=== PATIENT | female | born 1955 | race Caucasian/White ===

== ENCOUNTER 2019-05-15 08:57 | Day surgery (SDC) | payer MEDICAID ==
[~2019-05-15] VITALS: Ht 157.5 cm; Wt 72.6 kg
[2019-05-15] MEDS ORDERED: MOBIC7.5 MG (09:51)
[2019-05-15] MEDS ORDERED: HYDROCODON-ACE1 EA10 PO (09:52)
[2019-05-15] MEDS ORDERED: VALIUM10 MG PO (09:52)
[2019-05-15] MEDS ORDERED: LISINOPRIL30 MG PO (09:53)
[2019-05-15] MEDS ORDERED: HCTZ25 MG PO (09:54)
[2019-05-15 09:55] LABS: HEMATOCRIT 34.3 % (36.0-48.0); HEMOGLOBIN 11.6 g/dL (12-16); MCH 32.3 pg (26.0-34.0); MCHC 33.8 g/dL (31.0-37.0); MCV 95.5 fL (80.0-100.0); MEAN PLATELET VOLUME 8.7 fL (7.4-10.4); RBC 3.59 10x6/uL (4.00-5.40); RDW 13.1 % (11.5-14.5); WBC 3.7 10x3/uL (4.8-10.8)
[2019-05-15 10:13] VITALS: BP 118/63; Ht 157.5 cm; Wt 72.6 kg
--- NOTE | 2019-05-18 16:07 | OP ---
PATIENT NAME: KARLI METZ MEDICAL RECORD: [id number] :53 LOCATION:D.OPS ADMISSION DATE: SURGEON: SUKHDEV MORE MD DATE OF OPERATION: 05/15/2019 PREOPERATIVE DIAGNOSES: Transverse colon polyp at 75 cm, which was a flat polyp about 45% of the circumference of the colon, which was tattooed with Hermila ink, proximal and distal to the polyp. POSTOPERATIVE DIAGNOSES: Transverse colon polyp at 75 cm, which was a flat polyp about 45% of the circumference of the colon, which was tattooed with Hermila ink, proximal and distal to the polyp. PROCEDURES: 1. Total colonoscopy to cecum. 2. Hot biopsy forceps polypectomies times 1 with treatment utilizing the argon plasma entry level assistant manager. SURGEON: Sukhdev More MD BAKERY DECORATOR: None. BLOOD LOSS: Minimal. ANESTHESIA: IV sedation. COMPLICATIONS: None. The risks, possible complications and alternatives to the procedure were discussed with the patient. She elects to proceed. The discussion specifically included, but was not limited to, bleeding requiring emergency reoperation, endoscopic perforation. ENDOSCOPIC COURSE: The patient was conveyed to endoscopy suite electively on 05/15/2019. IV sedation was induced by the anesthesia staff. The patient was placed in Chand position. A digital rectal examination was performed. A colonoscope was inserted through the anus. It was easily advanced to the cecum. The prep was adequate. I slowly withdrew the endoscope. I irrigated and aspirated extensively. I dragged the folds. I utilized a combination of direct imaging as well as narrow band imaging. The pullback was greater than an 18-minute pullback. The tattooed area was noted. It was on a fold as well as behind a fold. The area was biopsied utilizing the hot biopsy forceps polypectomy technique. Some residual polypoid tissue was then ablated utilizing the argon plasma entry level assistant manager with the right colon setting in the forced mode. I withdrew into the rectum. A retroflexed view was obtained in the rectum. I then unretroflexed the scope and removed it under direct vision. I will see the patient in my office in 2-3 weeks. I will plan for her next colonoscopy to take place in 1-2 years. TRANSINT:[id number] Voice Confirmation ID: [id number] DOCUMENT ID: [id number] OPERATIVE REPORT [id number] ISAÍAS,KARLISUKHDEV TAYLOR MD at 1607 CC: TOLU MAIER and BRAEDEN RODRIGUEZ DO [id number] DICTATION DATE: 05/15/19 1552 BANDER HAND: 05/15/19 1610 [facility] 05/15/19 [facility] [address] [id number]
== END 2019-05-15 15:44 | disposition home or self-care (01) ==
LOC: D.OPS 08:57
PROVIDERS: Anesthesiology; ATTEND Surgery
DX: K63.5 Polyp of colon (principal); Z01.812 Encounter for preprocedural laboratory examination

== ENCOUNTER 2020-05-06 16:08 | Inpatient (IN) | payer MEDICARE ==
[~2020-05-06] VITALS: Ht 160 cm; Wt 75.5 kg
[~2020-05-06 16:08] MED LIST: HCTZ25 MG PO; HYDROCODON-ACE1 EA10 PO; LISINOPRIL30 MG PO; MOBIC7.5 MG; VALIUM10 MG PO
[2020-05-06 17:41] LABS: BILIRUBIN NEGATIVE (NEGATIVE); GLUCOSE NEGATIVE (NEGATIVE); KETONE MODERATE mg/dL (NEGATIVE); NITRITE NEGATIVE (NEGATIVE); UROBILINOGEN NORMAL (NORMAL)
[2020-05-06 17:42] LABS: BACTERIA MANY /hpf (NEGATIVE); EPITHELIAL CELLS OCC /hpf (0-5); RED CELLS - URINE 0-5 /hpf (0-5)
[2020-05-06 18:00] LABS: BASOPHILS 0.1 % (0-2); EOSINOPHILS 0 % (0-7); HEMATOCRIT 38.9 % (36.0-48.0); IMMATURE GRANULOCYTES 0.3 % (0-5); LYMPHOCYTES 6.8 % (15-50); MCH 32.3 pg (26.0-34.0); MCHC 33.4 g/dL (31.0-37.0); MCV 96.5 fL (80.0-100.0); MONOCYTES 1.3 % (2-11); NEUTROPHILS 91.5 % (40-80); PLATELET COUNT 234 10x3/uL (130-400); RBC 4.03 10x6/uL (4.00-5.40); RDW 12.9 % (11.5-14.5); WBC 10.5 10x3/uL (4.8-10.8)
[2020-05-06 18:10] LABS: CALC OSMOLALITY 281 mosm/kg (275-300); CALCIUM 9.5 mg/dL (8.5-10.1); CARBON DIOXIDE 25.1 mmol/L (21.0-32.0); CHLORIDE - SERUM 100 mmol/L (98-107); CREATININE - SERUM 1.3 mg/dL (0.6-1.3); GLUCOSE 133 mg/dL (74-106); POTASSIUM - SERUM 4.2 mmol/L (3.5-5.1); SODIUM 136 mmol/L (136-145); UREA NITROGEN 35 mg/dL (7-18); eGFR NON AFRICAN AMERICAN 43 mL/min (90-120)
[2020-05-06 18:12] VITALS: BP 199/97
[2020-05-06 18:19] LABS: ALBUMIN 4.2 g/dL (3.4-5.0); ALKALINE PHOSPHATASE 83 U/L (30-120); ALT (SGPT) 22 U/L (10-68); AMYLASE - SERUM 65 U/L (25-115); BILIRUBIN - TOTAL 0.43 mg/dL (0.2-1.3); LIPASE 117 U/L (73-393); PROTEIN - SERUM 7.5 g/dL (6.4-8.2)
[2020-05-06 18:23] LABS: TROPONIN-I < 0.017 ng/mL (0.000-0.060)
--- NOTE | 2020-05-06 19:30 | NUR ---
REPORT TO HANG HUTCHINS
--- NOTE | 2020-05-06 20:36 | NUR ---
PT TO MRI VIA WHEELCHAIR AT THIS TIME.
--- NOTE | 2020-05-06 21:11 | NUR ---
PT BACK FROM ORDERED MRI AT THIS TIME
--- NOTE | 2020-05-06 22:25 | NUR ---
MEFOXIN IV INFUSION FINISHED AT THIS TIME.
--- NOTE | 2020-05-06 23:00 | NUR ---
RECEIVED TO ROOM, ACCOMPANIED BY STAFF. A&O X 4, AMBULATES INDEPENDENTLY. REPORTS ABDOMINAL PAIN 8/10 AND NAUSEA. NS INFUSING AT 125 TO LEFT FOREARM. NO FURTHER NEEDS VOICED AT THIS TIME.
[2020-05-07] VITALS: BP 177/79
[2020-05-07 01:19] VITALS: BMI 29.4
[2020-05-07 04:00] VITALS: BP 172/82
[2020-05-07 05:33] LABS: BASOPHILS 0.1 % (0-2); EOSINOPHILS 0 % (0-7); HEMATOCRIT 33.6 % (36.0-48.0); IMMATURE GRANULOCYTES 0.3 % (0-5); MCH 31.8 pg (26.0-34.0); MCHC 32.7 g/dL (31.0-37.0); MCV 97.1 fL (80.0-100.0); MEAN PLATELET VOLUME 8.6 fL (7.4-10.4); MONOCYTES 5.6 % (2-11); PLATELET COUNT 278 10x3/uL (130-400); RBC 3.46 10x6/uL (4.00-5.40); WBC 11.9 10x3/uL (4.8-10.8)
[2020-05-07 05:46] LABS: ALBUMIN 3.3 g/dL (3.4-5.0); ANION GAP 14.4 mmol/L (8-16); BILIRUBIN - TOTAL 0.4 mg/dL (0.2-1.3); CALCIUM 8.9 mg/dL (8.5-10.1); CARBON DIOXIDE 24.5 mmol/L (21.0-32.0); POTASSIUM - SERUM 3.9 mmol/L (3.5-5.1); PROTEIN - SERUM 6.8 g/dL (6.4-8.2)
[2020-05-07 05:53] LABS: CREATININE - SERUM 1.8 mg/dL (0.6-1.3)
[2020-05-07 09:11] VITALS: BP 175/74
[2020-05-07 09:12] VITALS: Ht 160 cm; Wt 75.5 kg
[2020-05-07 12:51] VITALS: BP 139/50
--- NOTE | 2020-05-07 14:00 | NUR ---
PATIENT IN BED WITH IV ITNACT. VS STABLE. NO COMPLAINTS. BANDAIDS TO ABDOMEN CDI. STATED FEELING A LOT BETTER AT THIS TIME. CALL LIGHT WITHIN REACH.
[2020-05-07 15:12] LABS: BASOPHILS 0 % (0-2); EOSINOPHILS 0 % (0-7); HEMATOCRIT 31.6 % (36.0-48.0); HEMOGLOBIN 10.4 g/dL (12-16); IMMATURE GRANULOCYTES 0.3 % (0-5); LYMPHOCYTES 6.6 % (15-50); MCH 32.6 pg (26.0-34.0); MCHC 32.9 g/dL (31.0-37.0); MEAN PLATELET VOLUME 8.5 fL (7.4-10.4); MONOCYTES 3.2 % (2-11); NEUTROPHILS 89.9 % (40-80); RBC 3.19 10x6/uL (4.00-5.40)
[2020-05-07 15:15] LABS: MCV 99.1 fL (80.0-100.0); PLATELET COUNT 211 10x3/uL (130-400)
[2020-05-07 15:25] LABS: ANION GAP 16.7 mmol/L (8-16); CALCIUM 8.2 mg/dL (8.5-10.1); CARBON DIOXIDE 23.4 mmol/L (21.0-32.0); CREATININE - SERUM 1.5 mg/dL (0.6-1.3); POTASSIUM - SERUM 4.1 mmol/L (3.5-5.1)
--- NOTE | 2020-05-07 19:28 | NUR ---
PATIENT AMBULATING IN CYR AT THIS TIME WITH NO PROBLEMS.
--- NOTE | 2020-05-07 19:30 | NUR ---
SUPINE IN ROOM, A&O X 4. DENIES PAIN/N/V. AMBULATING INDEPENDENTLY, NO IV. DAY NURSE PAGED ERNESTO OJEDA. CTM
[2020-05-07 20:00] VITALS: BP 135/52
--- NOTE | 2020-05-07 20:00 | NUR ---
RUSTY DEWITT PAGED. AWAITING CALL BACK.
--- NOTE | 2020-05-07 20:30 | NUR ---
ATTEMPTED TO SITE IV TO LEFT FOREARM, 2 ATTEMPTS. NO RESULTS. CTM.
[2020-05-08] VITALS: BP 136/59
--- NOTE | 2020-05-08 00:33 | NUR ---
I have reviewed this patient and I concur with the Shift Assessment completed by the Licensed Practical Nurse today this shift.
[2020-05-08 04:00] VITALS: BP 144/74
[2020-05-08 06:17] LABS: ANION GAP 10.1 mmol/L (8-16); CALCIUM 8.3 mg/dL (8.5-10.1); CARBON DIOXIDE 25.6 mmol/L (21.0-32.0); MAGNESIUM - SERUM 1.6 mg/dL (1.8-2.4); PHOSPHOROUS 3.9 mg/dL (2.5-4.9); POTASSIUM - SERUM 3.7 mmol/L (3.5-5.1)
[2020-05-08 06:18] LABS: CREATININE - SERUM 1.1 mg/dL (0.6-1.3)
[2020-05-08 06:19] LABS: BASOPHILS 0 % (0-2); EOSINOPHILS 0 % (0-7); HEMATOCRIT 28.6 % (36.0-48.0); HEMOGLOBIN 9.4 g/dL (12-16); IMMATURE GRANULOCYTES 0.2 % (0-5); LYMPHOCYTES 19.7 % (15-50); MCH 32.1 pg (26.0-34.0); MCHC 32.9 g/dL (31.0-37.0); MCV 97.6 fL (80.0-100.0); MEAN PLATELET VOLUME 8.4 fL (7.4-10.4); MONOCYTES 6.5 % (2-11); NEUTROPHILS 73.6 % (40-80); PLATELET COUNT 204 10x3/uL (130-400); RBC 2.93 10x6/uL (4.00-5.40); RDW 12.8 % (11.5-14.5)
[2020-05-08 06:39] LABS: WBC 8.2 10x3/uL (4.8-10.8)
--- NOTE | 2020-05-08 08:31 | NUR ---
PATIENT SITTING UP IN BED EATING BREAKFAST. CL IN REACH. SHIFT ASSESSMENT COMPLETED. 3 LAP SITES NOTED. BANDAIDS CDI. NO NEEDS AT THIS TIME. CL IN REACH. HOPING FOR DISCHARGE TODAY. WCTM
[2020-05-08 09:00] VITALS: BP 140/73
[2020-05-08] MEDS ORDERED: BACTRIM DS TAB1 EAC1 PO (11:04)
--- NOTE | 2020-05-08 12:45 | MORECARE ---
CASE MANAGEMENT DISCHARGE SUMMARY PATIENT: KARLI METZ UNIT: [id number] ADM DATE: 05/06/20 AGE: 64 : 54 SEX: F ROOM/BED: D.2210 AUTHOR: MAHAMED FIGUEREDO PHYSICIAN: REFERRING PHYSICIAN: JEET KENT MD DATE OF SERVICE: 05/08/20 Discharge Plan Patient Name: KARLI METZ Facility: [facility]:[place] : 1955 Planned Disposition: Home or Self Care Anticipated Discharge Date: Discharge Date: Expected LOS: Initial Reviewer: [email or web address] Initial Review Date: 05/06/2020 Generated: 05/08/20 1:44 pm Comments DCP- Discharge Planning Updated by [email or web address]: Carmen Andre on 05/08/20 11:[address] Patient Name: KARLI METZ Admission Status: ER Accout number: [id number] Admission Date: 05-06-2020 : 1955 Admission Diagnosis:UNSPECIFIED ABDOMINAL PAIN Attending: EDY Current LOS: 2 Anticipated DC Date: Planned Disposition: Home or Self Care Primary Insurance: MEDICARE A & B Discharge Planning Comments: CM met with patient to complete initial dc planning assessment. CM educated patient on the CM role and verbal consent given by patient to complete assessment. Patient lives at home with her daughter where she is independent with her care. At discharge patient plans to return home and feels this is a safe discharge. CM discussed availability of home health, rehab services, and medical equipment. Her daughter will be her straddle bug driver home today. Patient denied known discharge needs at this time. CM will continue to follow and will assist as needed with dc plans/needs. Yard Supervisor: Carmen Andre DCPIA - Discharge Planning Initial Assessment Updated by [email or web address]: Carmen Andre on 05/08/20 12:40 pm * Is the patient Alert and Oriented? Yes * How many steps to enter\exit or inside your home? 1 FLIGHT * PCP LIVIER * [facility] * Preadmission Environment Home with Family * ADLs Independent * Equipment None * List name and contact numbers for known caregivers / representatives who currently or will assist patient after discharge: LIDIA LORENZ [phone] * Verbal permission to speak to the caregivers and representatives has been obtained from the patient. N/A * Community resources currently utilized None * Additional services required to return to the preadmission environment? No * Can the patient safely return to the preadmission environment? Yes * Has this patient been hospitalized within the prior 30 days at any hospital? No Patient Name: KARLI METZ Page [id number] at 1245 All edits/amendments must be made on the electronic document DICTATION DATE: 05/08/20 1244 FINISHING SUPERVISOR: TOMMIE 05/08/20 1244 RPT#: [id number] DC DATE: STATUS: ADM IN [facility] [address] [place] [address] END OF REPORT
--- NOTE | 2020-05-08 13:42 | NUR ---
DISCHARGE INSTRUCTIONS GIVEN. PATIENT VERBALIZED UNDERSTANDING OF APPT AND MEDICATIONS. NOTIFIED HER RIDE. WILL NOTIFY ME UPON RIDE'S ARRIVAL SO I CAN SHOW HER THE WAY DOWN. REFUSED WHEELCHAIR.
--- NOTE | 2020-05-08 17:35 | MORECARE ---
CASE MANAGEMENT DISCHARGE SUMMARY PATIENT: KARLI METZ UNIT: [id number] ADM DATE: 05/06/20 AGE: 64 : 53 SEX: F ROOM/BED: D.2210 AUTHOR: TERELLDOC PHYSICIAN: REFERRING PHYSICIAN: JEET KENT MD DATE OF SERVICE: 05/08/20 Discharge Plan Patient Name: KARLI METZ Facility: [facility]:[place] : 1955 Planned Disposition: Home or Self Care Anticipated Discharge Date: Discharge Date: 05/08/2020 Expected LOS: Initial Reviewer: [email or web address] Initial Review Date: 05/06/2020 Generated: 05/08/20 6:35 pm Comments DCP- Discharge Planning Updated by [email or web address]: Carmen Andre on 05/08/20 11:[address] Patient Name: KARLI METZ Admission Status: ER Accout number: [id number] Admission Date: 05-06-2020 : 1955 Admission Diagnosis:UNSPECIFIED ABDOMINAL PAIN Attending: EDY Current LOS: 2 Anticipated DC Date: Planned Disposition: Home or Self Care Primary Insurance: MEDICARE A & B Discharge Planning Comments: CM met with patient to complete initial dc planning assessment. CM educated patient on the CM role and verbal consent given by patient to complete assessment. Patient lives at home with her daughter where she is independent with her care. At discharge patient plans to return home and feels this is a safe discharge. CM discussed availability of home health, rehab services, and medical equipment. Her daughter will be her recycler forklift driver truck driver home today. Patient denied known discharge needs at this time. CM will continue to follow and will assist as needed with dc plans/needs. Technical Training Specialist: Carmen Andre DCPIA - Discharge Planning Initial Assessment Updated by [email or web address]: Carmen Andre on 05/08/20 12:40 pm * Is the patient Alert and Oriented? Yes * How many steps to enter\exit or inside your home? 1 FLIGHT * PCP LIVIER * [facility] * Preadmission Environment Home with Family * ADLs Independent * Equipment None * List name and contact numbers for known caregivers / representatives who currently or will assist patient after discharge: LIDIA [phone] * Verbal permission to speak to the caregivers and representatives has been obtained from the patient. N/A * Community resources currently utilized None * Additional services required to return to the preadmission environment? No * Can the patient safely return to the preadmission environment? Yes * Has this patient been hospitalized within the prior 30 days at any hospital? No Last DP export: 05/08/20 11:45 am Patient Name: KARLI METZ Page [id number] at 1735 All edits/amendments must be made on the electronic document DICTATION DATE: 05/08/201734 MACHINIST APPRENTICE: TOMMIE 05/08/205 RPT#: [id number] DC DATE:05/08/20 STATUS: DIS IN [facility] [address] [place] [address] END OF REPORT
--- NOTE | 2020-05-09 10:13 | OP ---
PATIENT NAME: KARLI METZ MEDICAL RECORD: [id number] :53 LOCATION:D.MS Rosa2210 ADMISSION DATE:05/06/20 SURGEON: DMITRIY BUCHANAN MD DATE OF OPERATION: 05/07/2020 PREOPERATIVE DIAGNOSES: 1. Acute appendicitis with localized peritonitis. 2. Hypertension. POSTOPERATIVE DIAGNOSES: 1. Acute appendicitis with localized peritonitis. 2. Hypertension. PROCEDURE: Laparoscopic appendectomy. SURGEON: Dmitriy Buchanan MD REPORT OF PROCEDURE: The patient's abdomen was prepped and draped in sterile fashion. A cutdown was made on the superior aspect of the umbilicus, 0 Vicryls were placed in the fascia bilaterally and the fascia was incised with 15-blade. I then bluntly entered the peritoneal cavity and placed a 12-mm Emmanuel port. Under direct visualization, a 5 mm trocar was placed in the left lower quadrant and another was placed in the suprapubic region. The appendix was visualized and noted to be acutely inflamed and very swollen. There is no sign of gangrene or perforation. There was no sign of abscess. The patient had some adhesions present in the right upper quadrant. These were of fatty tissue and omentum to the anterior and lateral abdominal wall. These were encasing the tip of the appendix, went ahead and took down these adhesions and at this point, I was able to mobilize appendix more freely. A window was made at the base of the mesoappendix and the base of the appendix was transected with a 45 blue load Endo-JOSE stapler. We then transected the mesoappendix with the 45 white load Endo-JOSE stapler and the appendix was placed into an Endo Catch bag. Any bleeding from the staple line was then treated with electrocautery and at the conclusion of the case, there was no sign of any active bleeding. We irrigated out the right lower quadrant and pelvis and assured there was no sign of any further bleeding or leakage. The staple lines appeared to be intact. The ports and insufflation were then removed and the appendix was taken out through the umbilicus. The umbilical fascia was closed with interrupted 0 Vicryls times 3. The wounds were then irrigated out with normal saline and infused with 10 mL of 0.25% Marcaine with epinephrine. The skin incisions were all closed with subcutaneous 5-0 Monocryl and dressed appropriately. COMPLICATIONS: None. CONDITION: Stable. ANESTHESIA: General endotracheal and local. BLOOD LOSS: 30 mL. TRANSINT:[id number] Voice Confirmation ID: [id number] DOCUMENT ID: [id number] OPERATIVE REPORT [id number] KARLI METZ CHRISTIAN MD at 1013 CC: [id number] DICTATION DATE: 05/07/20 1223 CONTACT CENTER MANAGER: 05/07/20 2133 DIS IN 05/08/20 [id number] [place] [address]
== END 2020-05-08 14:17 | disposition home or self-care (01) | DRG 342 ==
LOC: D.ER 16:08 → D.MS 19:48
PROVIDERS: Family Medicine; Surgery; ADMIT Family Medicine; ATTEND Family Medicine
PROC: 0DTJ4ZZ Resection of Appendix, Percutaneous Endoscopic Approach (ICD-10-PCS; principal; 2020-05-07 10:30)
DX: K35.30 Acute appendicitis with localized peritonitis, without perforation or gangrene (principal); N39.0 Urinary tract infection, site not specified; M19.90 Unspecified osteoarthritis, unspecified site; I10 Essential (primary) hypertension; E27.9 Disorder of adrenal gland, unspecified; D18.09 Hemangioma of other sites

== ENCOUNTER → 2020-06-18 20:52 | Outpatient (CLI) | payer MEDICARE ==
[2020-05-07 09:12] VITALS: BMI 29.4
[~2020-06-18 20:52] MED LIST changes: +BACTRIM DS TAB1 EAC1 PO
== END | disposition home or self-care (01) ==
LOC: D.LABREF 20:52
PROVIDERS: ATTEND Urology
DX: N32.9 Bladder disorder, unspecified (principal)

== ENCOUNTER 2020-06-19 08:57 | Day surgery (SDC) | payer MEDICARE ==
[~2020-06-19] VITALS: Ht 160 cm; Wt 73.9 kg
[2020-06-19 09:37] LABS: HEMATOCRIT 34.4 % (36.0-48.0); HEMOGLOBIN 11.3 g/dL (12-16); LYMPHOCYTES 32.3 % (15-50); MCH 31.4 pg (26.0-34.0); MCHC 32.8 g/dL (31.0-37.0); MCV 95.6 fL (80.0-100.0); MEAN PLATELET VOLUME 8.2 fL (7.4-10.4); NEUTROPHILS 62.1 % (40-80); RDW 12.9 % (11.5-14.5); WBC 5.2 10x3/uL (4.8-10.8)
[2020-06-19 09:39] LABS: ANION GAP 11.2 mmol/L (8-16); CALCIUM 9.2 mg/dL (8.5-10.1); CREATININE - SERUM 1.2 mg/dL (0.6-1.3); PLATELET COUNT 339 10x3/uL (130-400); POTASSIUM - SERUM 4.2 mmol/L (3.5-5.1)
[2020-06-19 09:42] LABS: INR 0.95 (0.85-1.17); PROTIME 12.7 SECONDS (11.6-15.0)
[2020-06-19 10:03] VITALS: BP 148/76; Ht 160 cm; Wt 73.9 kg
--- NOTE | 2020-06-19 15:59 | NUR ---
1350 MEDICATED FOR BACK PAIN. PT FORGOT TO BRING HER PAIN MEDS FOR HER BACK ANESTHESIA CALLED AND DR LEDEZMA ORDERED PAIN MEDS PO
--- NOTE | 2020-06-19 16:00 | NUR ---
1430 IV REMOVED AND PRESSURE HELD. INSTRUCTIONS GIVEN 1530 PT D/C HOME
--- NOTE | 2020-06-20 12:55 | OP ---
PATIENT NAME: KARLI METZ MEDICAL RECORD: [id number] :53 LOCATION:D.OPS ADMISSION DATE: SURGEON: GEORGE CINTRON MD DATE OF OPERATION: 06/19/2020 SURGEON: George Cintron MD ANESTHESIA: General anesthesia by Kali Leal CRNA. DIAGNOSIS: Bladder mass, goblet cell adenocarcinoma of the appendix. PROCEDURE: Cystoscopy. FINDINGS: On cystoscopy, single ureteral orifices bilaterally with no bladder tumors. Cystocele with indentation of the posterior bladder wall by uterine fibroid. On examination under anesthesia, she has a [place]-Walker grade I uterine descent. ESTIMATED BLOOD LOSS: None. CLINICAL HISTORY: This is a 64-year-old female, who recently presented with right lower quadrant abdominal pain. She had a CT scan consistent with an acute appendicitis, there was also an enhancing right liver area which may be a hemangioma and a possible mass in the bladder. The bladder mass was said to be 2.2 cm in size. The appendectomy was done by Dr. Estrada. 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 She comes now to have cystoscopy and possible bladder tumor resection. She was given IV antibiotics confectionery laboratory manager to the OR. DESCRIPTION OF PROCEDURE: The patient was given induction of general anesthesia in supine position. She was then placed in the lithotomy position and prepped and draped. A 17-Ukrainian cystoscope with 30-degree lens was used for visualization. No tumors were seen. She does have an indentation of the posterior bladder wall from the fibroid uterus. Examining the vaginal area manually, there is a mobile uterus, but I do not feel any masses in the bladder area. The bladder was emptied through the cystoscope sheath and the scope was removed. She will see Dr. Estrada in followup. TRANSINT:[id number] Voice Confirmation ID: [id number] DOCUMENT ID: [id number] GEORGE CINTRON MD at 1255 CC: [id number] DICTATION DATE: 06/19/20 1329 EMERGENCY VETERINARIAN: 06/19/20 2327 [facility] 06/19/20 [place] [address]
== END 2020-06-19 15:30 | disposition home or self-care (01) ==
LOC: D.OPS 08:57 → D.PAN 10:55 → D.OPS 11:45
PROVIDERS: Anesthesiology; ATTEND Urology
DX: N32.9 Bladder disorder, unspecified (principal); C18.1 Malignant neoplasm of appendix; I10 Essential (primary) hypertension; J45.909 Unspecified asthma, uncomplicated; N32.89 Other specified disorders of bladder